=== PATIENT | male | born 1955 | race Caucasian/White ===

== ENCOUNTER → 2020-07-22 | Outpatient (CLI) | payer BC ==
[~2020-07-22] MED LIST: FLECAINIDE ACET50 M1 PO; LIPITOR40 MG PO; OMEGA-3 + VITA1 EAC2 PO; PRADAXA150 MG PO; TOPROL XL25 MG PO; UNICOMPLEX M TA1 TA1 PO
[2020-07-22 10:03] LABS: HEMATOCRIT 45.2 % (42.0-52.0); HEMOGLOBIN 15.2 gm/dL (14.0-18.0); MCH 32.1 pg (26.0-34.0); MCHC 33.5 g/dL (28.0-37.0); MCV 95.7 fL (80.0-100.0); RBC 4.73 mil/uL (4.50-6.00); RDW 12.4 % (10.5-14.5); WBC 5.5 thou/uL (4.0-11.0)
[2020-07-22 10:21] LABS: ALBUMIN 4.1 g/dL (3.4-5.0); CALCIUM 9.2 mg/dL (8.5-10.1); CREATININE 1.2 mg/dL (0.7-1.3); POTASSIUM 3.7 mmol/L (3.5-5.1); TOTAL BILIRUBIN 0.7 mg/dL (0.2-1.0); TOTAL PROTEIN 7.2 g/dL (6.4-8.2)
== END ==
LOC: CAT 09:11
PROVIDERS: ATTEND Internal Medicine Cardiovascular Disease
DX: Z01.818 Encounter for other preprocedural examination (principal); I48.91 Unspecified atrial fibrillation

== ENCOUNTER → 2020-07-22 | Outpatient (CLI) | payer BC, OTHER | LOC: LAB 08:54 | PROVIDERS: ATTEND Internal Medicine Cardiovascular Disease | DX: Z01.812 Encounter for preprocedural laboratory examination (principal); Z20.822 Contact with and (suspected) exposure to COVID-19 ==

== ENCOUNTER → 2020-07-25 | Outpatient (CLI) | payer BC, OTHER ==
[~2020-07-25] VITALS: Ht 172.7 cm; Wt 72.6 kg
[2020-07-25 07:32] VITALS: BP 140/68
[2020-07-25 07:40] LABS: ABSOLUTE NEUTROPHILS 2.5 thou/uL (1.4-8.2); BASOPHILS 0.9 % (0.0-2.0); EOSINOPHILS 2.5 % (0.0-3.0); HEMATOCRIT 43.8 % (42.0-52.0); LYMPHOCYTES 30.4 % (24.0-44.0); MCH 32.6 pg (26.0-34.0); MCHC 34.2 g/dL (28.0-37.0); MCV 95.5 fL (80.0-100.0); MONOCYTES 10.3 % (1.0-8.0); PLATELET COUNT 156 thou/uL (150-400); POLYS 55.9 % (36.0-66.0); RBC 4.59 mil/uL (4.50-6.00); RDW 12.6 % (10.5-14.5); WBC 4.4 thou/uL (4.0-11.0)
[2020-07-25 07:57] LABS: APTT 27.2 Seconds (24.5-32.8); INR 1.1
[2020-07-25 08:01] LABS: CALCIUM 9.6 mg/dL (8.5-10.1); CREATININE 1.2 mg/dL (0.7-1.3); POTASSIUM 3.7 mmol/L (3.5-5.1)
[2020-07-25 08:07] LABS: ALBUMIN 4.3 g/dL (3.4-5.0); TOTAL BILIRUBIN 1.1 mg/dL (0.2-1.0); TOTAL PROTEIN 7.5 g/dL (6.4-8.2)
--- NOTE | 2020-07-31 14:26 | P ---
[facility] [place] [address] PROCEDURE REPORT Name: KIM BARRERA Room #: REG [facility].#: [id number] Admission: 07/25/20 Attend Phys: Lamont Salas MD Discharge: Date of : 55 Report #: [id number] THIS REPORT FOR: cc: Hong Moreno David J. DO Couchonnal, Luis F. MD ~ PREOPERATIVE DIAGNOSIS: Atrial fibrillation. POSTOPERATIVE DIAGNOSIS: Atrial fibrillation. PROCEDURES PERFORMED: 1. Atrial fibrillation ablation, CPT code 81324. 2. 3D mapping, CPT code 23892. 3. Intracardiac echo, CPT code 56639. ANESTHESIA: The patient underwent general anesthesia with no anesthesia related complications. DESCRIPTION OF PROCEDURE: The patient underwent informed consent. We discussed the details of the procedure including the risks, which include but not limited to bleeding, vascular damage, cardiac perforation, stroke, DC. He understood these risks and is willing to proceed. The patient was brought to EP laboratory in fasting and sedated state, prepped and draped in sterile fashion. I injected lidocaine at the right groin, obtained access to the right femoral vein x 3, placing an 8, 9 and 7-[place] short sheath using the modified Seldinger technique. Next, under fluoroscopy, Decapolar catheter was placed in the coronary sinus. ICE catheter was placed in the right atrium and there was evidence of two left and two right pulmonary veins. Next, the patient was systemically heparinized and a transseptal was performed using an SL1 sheath and a [place] needle. Transseptal was straightforward. I then exchanged the SL1 sheath for the cryo sheath and placed a Lasso catheter in the left atrium. Next, a detailed 3D geometry and voltage map of the left atrium was created. Then, the cryoballoon was placed in the left atrium. The left superior pulmonary vein underwent two 4-minute freezes and isolated during the second freeze within 35 seconds. The left inferior pulmonary vein underwent two 4-minute freezes and was isolated post ablation. The right superior pulmonary vein underwent two 4-minute freezes and was isolated, and the right inferior pulmonary vein underwent a 4-minute followed by 3-minute freeze. The vein isolated during the second freeze within 55 seconds. Next, a repeat voltage map was created and there was wide circumferential ablation of all pulmonary veins. Next, a basic EP study was performed with aggressive atrial burst pacing and single atrial extrastimuli. AV block was noted at 290 milliseconds. Atrial ERP was noted at 210 milliseconds at a [address] cycle length, no AFib, atrial flutter or SVT was induced. Using intracardiac ultrasound, I verified there was no pericardial effusion. The patient then received systemic protamine, and catheters and sheaths were pulled, and hemostasis was obtained. [facility] [address] [place] [address] PROCEDURE REPORT Name: KIM BARRERA Room #: REG [facility] Monique#: [id number] Admission: 07/25/20 Attend Phys: Lamont Salas MD Discharge: Date of : 55 Report #: [id number] The patient awoke neurologically and hemodynamically intact. No complications and no significant bleeding. CONCLUSIONS: 1. Successful atrial fibrillation ablation with isolation of the pulmonary veins. 2. Normal EP study with no other inducible arrhythmias. <ELECTRONICALLY SIGNED> By: Lamont Salas MD 07/31/20 1426 [id number] Lamont Salas MD /nt
== END | disposition home or self-care (01) ==
LOC: CATH 06:31
PROVIDERS: ATTEND Internal Medicine Cardiovascular Disease
DX: I48.91 Unspecified atrial fibrillation (principal); E78.5 Hyperlipidemia, unspecified; Z98.890 Other specified postprocedural states; Z79.899 Other long term (current) drug therapy; Z79.01 Long term (current) use of anticoagulants; Z82.49 Family history of ischemic heart disease and other diseases of the circulatory system; Z85.828 Personal history of other malignant neoplasm of skin
CPT/HCPCS: 62110; 62900; 65020; 65040; 70005